=== PATIENT | female | born 1940 | race Caucasian/White ===

== ENCOUNTER 2017-03-21 12:49 | Emergency (ER) | payer MEDICARE ==
--- NOTE | ~2017-03-21 | CR127 ---
[facility] A Service of [facility] RADIOLOGY TEXT RESULTS PATIENT: NANDO MCKENZIE LOCATION: [facility] : 36 UNIT #: [id number] AGE: [address]: Michelle Koch MD SEX: F ORDER DR: [id number] [facility] [address] [place], [place] [address] [id number] MR#: [id number] Acc #: [id number] NAME: NANDO MCKENZIE. : 1940 SEX: F STUDY DATE/TIME: 03/21/2017 UNIT: [facility] ROOM: STUDY DESCRIPTION: CR Foot Complete Min 3 View Rt Attending Physician: Michelle Koch M.D. Ordering Physician: Hayden Long M.D. Primary Care Physician: Fredrick Beth M.D. MEDICAL IMAGING REPORT This report is preliminary unless electronic signature is present EXAM Right foot 3 views 03/21/2017 13:26 hours HISTORY 77-year-old woman who fell 3 days ago with pain and swelling of the foot and ankle since fall. COMPARISON None FINDINGS AP, lateral and oblique views demonstrate mild osteopenia. There is no acute fracture or dislocation. IMPRESSION Mild osteopenia. No fracture or dislocation. Dictated by... Bren Bonilla M.D. THIS IS AN ELECTRONICALLY VERIFIED REPORT Bren Bonilla M.D. at 03/22/2017 9:28 AM YO/anshu TD: 03/21/2017 15:21 JOB #: [id number] MEDICAL IMAGING REPORT Page 1 of 1 COPY
--- NOTE | ~2017-03-21 | CR21 ---
[facility] A Service of [facility] RADIOLOGY TEXT RESULTS PATIENT: NANDO MCKENZIE LOCATION: [facility] : 38 UNIT #: [id number] AGE: [address]: Fredrick Beth MD SEX: F ORDER DR: [id number] [facility] [address] [place], [place] [address] [id number] MR#: [id number] #: [id number] NAME: NANDO MCKENZIE : 1940 SEX: F STUDY DATE/TIME: 03/21/2017 13:26 UNIT: [facility] ROOM: STUDY DESCRIPTION: CR Ankle Min 3 Views Rt Ordering Physician: Hayden Long M.D. Primary Care Physician: Fredrick Beth M.D. MEDICAL IMAGING REPORT This report is preliminary unless electronic signature is present EXAM Right ankle, 3 views, 03/21/2017, 1326 hours. CLINICAL HISTORY 77-year-old woman who fell 3 days ago with complaint of persistent pain and swelling of the foot and ankle since fall. COMPARISON None FINDINGS AP, lateral, and oblique views demonstrate no fracture of the distal fibula or distal tibia. The ankle mortise is intact. There is a thin sliver of bone seen in the lateral hindfoot measuring 8 mm in longitudinal length and just 3 mm transverse best seen on the AP and oblique views, most likely representing an avulsion fracture. Correlate with point tenderness laterally in the hindfoot. IMPRESSION 1. There is no fracture of the distal fibula or tibia. The ankle mortise is intact. 2. There is a sliver of bone laterally in the hindfoot measuring up to 8 mm x 3 mm, most likely representing an avulsion fracture from the hindfoot. Correlate with focal point tenderness laterally in the hindfoot distal to the distal fibula. STAT * RESULT Dictated by... Bren Bonilla M.D. [facility] A Service of [facility] RADIOLOGY TEXT RESULTS PATIENT: NANDO MCKENZIE LOCATION: [facility] : 38 UNIT #: [id number] AGE: [address]: Fredrick Beth MD SEX: F ORDER DR: THIS IS AN ELECTRONICALLY VERIFIED REPORT Bren Bonilla M.D. at 03/21/2017 2:28 PM YO/laverne TD: 03/21/2017 14:04 JOB #: [id number] MEDICAL IMAGING REPORT Page 1 of 1 COPY
[~2017-03-21 12:49] MED LIST: ACETAMINOPHEN PO; ASPIRIN PO; B12 PO; CALAN PO; CALCIUM + D 6001 TA1 PO; CALCIUM + VITAM1 TAB PO; CALCIUM PO; CELEXA20 MG PO; CRANBERRY PLUS1 EAC1 PO; DIGITEK125 MC1 PO; FEMARA2.5 MG PO; FOSAMAX PO; IMDUR PO; KEFLEX500 MG PO; KEPPRA500 MG PO; LANOXIN PO; MEDI-MECLIZINE25 M1 PO; MEGACE ORA40 MG/ML S PO; NEURONTIN100 MG PO; OYSTER SHELL C500 MG; PLAQUENIL200 MG PO; PRAVASTATIN SOD40 MG PO; TOPROL XL50 MG PO; VERAPAMIL HCL120 MG PO; VERAPAMIL HCL240 MG PO; VICODIN 5/500 T1 TAB PO; VIT E PO; VITAMIN D400 UNI2; VITAMIN D50000 UNIT PO
== END 2017-03-21 15:25 | disposition home or self-care (01) ==
LOC: CED 12:49
DX: S92.901A Unspecified fracture of right foot, initial encounter for closed fracture (principal); I10 Essential (primary) hypertension; Z88.5 Allergy status to narcotic agent; Z91.040 Latex allergy status; Z79.899 Other long term (current) drug therapy; X58.XXXA Exposure to other specified factors, initial encounter; Y92.099 Unspecified place in other non-institutional residence as the place of occurrence of the external cause
CPT/HCPCS: 29515; 73610; 73630; 99283